=== PATIENT | female | born 1980 | race Caucasian/White ===

== ENCOUNTER 2018-09-27 20:15 | Emergency (ER) | payer BC, OTHER ==
[2018-09-27] MEDS ORDERED: RABIES VACCINE (PCEC)/PF 2.5 UNIT/VIAL IM ONE ×2 (20:24→21:49)
[2018-09-27 20:29] VITALS: BP 141/94; PULSE 84; TEMP 98.8; BMI 20.7
[2018-09-27] MEDS ORDERED: RABIES IMMUNE GLOBULIN 300 UNITS/1 ML VIAL IM ONE (21:03)
[2018-09-27] MEDS ORDERED: DIPHTH,PERTUSS(ACELL),TET 0.5 ML DISP.SYRIN IM ONE ×2 (21:03→21:49)
--- NOTE | 2018-09-27 21:48 | PDOC ---
History of Present Illness <Darien Santo - Last Filed: 09/27/18 21:46> - History of Present Illness Initial Comments: The patient is a 38 year old female, with no significant past medical history, who presents to the emergency department s/p dog bite 2 days ago. Patient states that she was on vacation in [place] when she was bit on the ankle by a small stray dog. She comes in today to receive a rabies shot. She denies recent fevers, chills, headache or dizziness. She denies recent nausea, vomit, diarrhea or constipation. She denies recent dysuria, frequency, urgency or hematuria. She denies recent chest pain or shortness of breath. Allergies: Augmentin (rash) Past surgical history: None reported. 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 Primary Care Physician: none <Aleyda Abrams - Last Filed: 09/27/18 21:59> - General Chief Complaint: Bite Stated Complaint: DOG BITE Time Seen by Provider: 09/27/18 20:19 Past History - Past Medical History COPD: No - Immunization History Immunization Up to Date: Yes - Suicide/Smoking/Psychosocial Hx Smoking History: Current some day smoker Have you smoked in the past 12 months: Yes Number of Cigarettes Smoked Daily: 1 Information on smoking cessation initiated: No 'Breaking Loose' booklet given: 07/10/14 Hx Alcohol Use: No Substance Use Type: None <Darien Santo - Last Filed: 09/27/18 21:46> <Aleyda Abrams - Last Filed: 09/27/18 21:59> - Past Medical History Allergies/Adverse Reactions: Allergies Allergy/AdvReac Type Severity Reaction Status Date / Time amoxicillin trihydrate Allergy Rash Verified 07/10/14 22:58 [From Augmentin] potassium clavulanate Allergy Rash Verified 07/10/14 22:58 [From Augmentin] Home Medications: Ambulatory Orders Klonopin PRN PRN 09/27/18 Review of Systems - Review of Systems Comments:: Constitutional: no recent illness; no fever ENT: no sore throat Cardiovascular: no palpitations; no chest pain Pulmonary: no cough; no trouble breathing Gastrointestinal: No nausea; no vomiting; no diarrhea Genitourinary: No urinary problems; no hematuria Skin: + right ankle dog bite. Lymph system: No swollen glands Musculoskeletal: No joint swelling Neurological: No weakness; No numbness; No Headache; no vertigo; no lightheadedness Psychiatric:No anxiety; no depression <Aleyda Abrams - Last Filed: 09/27/18 21:59> *Physical Exam - Vital Signs Last Vital Signs Temp Pulse Resp BP Pulse Ox 98.8 F 84 16 141/94 100 09/27/18 20:23 09/27/18 20:23 09/27/18 20:23 09/27/18 20:23 09/27/18 20:23 <Darien Santo - Last Filed: 09/27/18 21:46> - Vital Signs Last Vital Signs Temp Pulse Resp BP Pulse Ox 98.8 F 84 16 141/94 100 09/27/18 20:23 09/27/18 20:23 09/27/18 20:23 09/27/18 20:23 09/27/18 20:23 - Physical Exam Comments: Vitals: Triage Vital signs reviewed General Appearance: no acute distress, well nourished well developed Head: Atraumatic Extremities: Full range of motion to all extremities, no cyanosis, clubbing, or edema Skin: Small superficial dog bite to right ankle. Warm and dry, no rashes, no petechiae Neuro: AOX3; Strength intact to all extremities, Sensation intact to all extremities, gait normal <Aleyda Abrams - Last Filed: 09/27/18 21:59> Moderate Sedation - Procedure Monitoring Vital Signs: Procedure Monitoring Vital Signs Temperature 98.8 F 09/27/18 20:23 Pulse Rate 84 09/27/18 20:23 Respiratory Rate 16 09/27/18 20:23 Blood Pressure 141/94 09/27/18 20:23 O2 Sat by Pulse Oximetry (%) 100 09/27/18 20:23 <Darien Santo - Last Filed: 09/27/18 21:46> - Procedure Monitoring Vital Signs: Procedure Monitoring Vital Signs Temperature 98.8 F 09/27/18 20:23 Pulse Rate 84 09/27/18 20:23 Respiratory Rate 16 09/27/18 20:23 Blood Pressure 141/94 09/27/18 20:23 O2 Sat by Pulse Oximetry (%) 100 09/27/18 20:23 <Aleyda Abrams - Last Filed: 09/27/18 21:59> Medical Decision Making - Medical Decision Making 09/27/18 21:47 Patient presents to the emergency department status post dog bite 2 days ago while in [place]. Dog was a stray dog she was been in her ankle she was prescribed antibiotics which she is currently taking she presents to the emergency department to be evaluated for rabies. Patient well-appearing no apparent distress no systemic signs and symptoms of active infection Tetanus updated rabies vaccine and immunoglobulin given in ED patient will return for 3 additional shots Findings, the need for follow-up and strict return instructions discussed with patient. <Darien Santo - Last Filed: 09/27/18 21:46> *DC/Admit/Observation/Transfer - Discharge Dispostion Decision to Admit order: No <Darien Santo - Last Filed: 09/27/18 21:46> - Attestations Scribe Attestion: 09/27/18 21:59 Documentation prepared by Aleyda Abrams, acting as quality engineer medical device for Darien Santo MD. <Aleyda Abrams - Last Filed: 09/27/18 21:59> Diagnosis at time of Disposition: Dog bite Qualifiers: Encounter type: initial encounter Qualified Code(s): W54.0XXA - Bitten by dog, initial encounter - Discharge Dispostion Disposition: HOME Condition at time of disposition: Stable - Referrals - Patient Instructions Printed Discharge Instructions: DI for Animal Bites Additional Instructions: Continue your antibiotics as prescribed. Bacitracin to bite area twice a day. Return to the emergency department on September 30 and the to complete your rabies series. Return to ED for any concerns. - Post Discharge Activity Forms/Work/School Notes: Rabies Vaccination F/U [facility].
[2018-09-27] MEDS ORDERED: RABIES IMMUNE GLOBULIN 300 UNITS/1 ML VIAL ONE (21:49)
== END 2018-09-27 22:20 | disposition home or self-care (01) ==
LOC: FER 20:15
PROC: 3E0234Z Introduction of Serum, Toxoid and Vaccine into Muscle, Percutaneous Approach (ICD-10-PCS; principal; 2018-09-27)
PROC: 3E0234Z Introduction of Serum, Toxoid and Vaccine into Muscle, Percutaneous Approach (ICD-10-PCS; 2018-09-27)
DX: Z23 Encounter for immunization (principal); Z20.3 Contact with and (suspected) exposure to rabies
CPT/HCPCS: 90375; 90675; 90715; 99282-25

== ENCOUNTER 2018-09-30 21:17 | Emergency (ER) | payer BC, OTHER ==
--- NOTE | 2018-09-30 21:19 | PDOC ---
History of Present Illness - General Chief Complaint: Revisit,Rabies Injection Stated Complaint: RABIES INJECTION Time Seen by Provider: 09/30/18 21:19 History Source: Patient Exam Limitations: No Limitations - History of Present Illness Initial Comments: 09/30/18 21:31 38 year old female, with no significant past medical history, who presents to the emergency department s/p dog bite when she was on vacation in [place] when she was bit on the rt ankle by a small stray dog on 09/25/18. She comes in today to receive a rabies shot, #2/4. only took her abx x 3 days, stopped taking due to effects. area healing, no s/s infection. got call from [facility] today ROS Constitutional: no fevers or chills. MUSCULOSKELETAL: No joint pain and swelling. No neck or back pain. SKIN: no redness or skin changes, no discharge, no rash. No wounds. Hematologic: no easy bruising/bleeding. NEUROLOGIC: No weakness, numbness or tingling. Allergic/Immunologic: no allergies All other systems reviewed and negative, or as documented in HPI. PE: General: NAD, well appearing Vascular: 2+ radialis pulses symmetric and equal. Neuro: distal transcriber strength 5/5. sensation grossly intact MSK: soft compartments, Cap refill <2 sec. 2+ radialis pulses bilaterally and symmetric. no joint tenderness. FROM. Skin: color normal color, warm and well perfused. 09/30/18 21:31 09/30/18 21:33 09/30/18 21:34 Past History - Past Medical History Allergies/Adverse Reactions: Allergies Allergy/AdvReac Type Severity Reaction Status Date / Time amoxicillin trihydrate Allergy Rash Verified 07/10/14 22:58 [From Augmentin] potassium clavulanate Allergy Rash Verified 07/10/14 22:58 [From Augmentin] Home Medications: Ambulatory Orders NK [No Known Home Medication] 09/30/18 COPD: No - Immunization History Immunization Up to Date: Yes - Suicide/Smoking/Psychosocial Hx Smoking History: Current some day smoker Have you smoked in the past 12 months: Yes Number of Cigarettes Smoked Daily: 1 'Breaking Loose' booklet given: 07/10/14 Hx Alcohol Use: No Substance Use Type: None Medical Decision Making - Medical Decision Making 09/30/18 21:35 hpi as documented VS wnl given dose 2/4 of rabies vaccine due to exposure to stray dog [place]. scheduled reviewed, return on 10/04 and 10/11 for next dosing to complete series already given tetanus no s/s infection. has good followup return precautions given. 09/30/18 21:36 *DC/Admit/Observation/Transfer Diagnosis at time of Disposition: Need for rabies vaccination - Discharge Dispostion Disposition: HOME Condition at time of disposition: Good Decision to Admit order: No - Referrals - Patient Instructions Printed Discharge Instructions: DI for Rabies Vaccine Additional Instructions: you came in today for your rabies vaccine. #2 in series of 4 total you will be followed with the Department of Health. Return to the emergency department on October 04 and the to complete your rabies series. Return to ED for any concerns such as infection you completed your antibiotics. keep the site clean and dry. - Post Discharge Activity
[2018-09-30] MEDS ORDERED: RABIES VACCINE (PCEC)/PF 2.5 UNIT/VIAL IM ONE ×2 (21:21→21:25)
[2018-09-30 21:25] VITALS: BP 144/92; PULSE 80; TEMP 98.2; BMI 20.7
== END 2018-09-30 21:34 | disposition home or self-care (01) ==
LOC: FER 21:17
PROC: 3E0234Z Introduction of Serum, Toxoid and Vaccine into Muscle, Percutaneous Approach (ICD-10-PCS; principal; 2018-09-30)
DX: Z23 Encounter for immunization (principal); Z20.3 Contact with and (suspected) exposure to rabies
CPT/HCPCS: 90675; 99281-25

== ENCOUNTER 2018-10-04 14:57 | Emergency (ER) | payer BC, OTHER ==
[2018-10-04 15:01] VITALS: BP 110/69; PULSE 71; TEMP 98.3; BMI 20.7
[2018-10-04] MEDS ORDERED: RABIES VACCINE (PCEC)/PF 2.5 UNIT/VIAL IM ONE ×2 (15:10→15:12)
--- NOTE | 2018-10-04 15:23 | PDOC ---
History of Present Illness - General Chief Complaint: Revisit,Rabies Injection Stated Complaint: RABIES INJECTION Time Seen by Provider: 10/04/18 14:58 - History of Present Illness Initial Comments: 10/04/18 15:13 38 year old female, with no significant past medical history, who presents to the emergency department for her 3rd rabies vaccine. Pt is s/p dog bite when she was on vacation in [place], she was bit on the rt ankle by a small stray dog on 09/25/18. Notes bite area is healing, with no redness, increasing pain, warmth or discharge. Denies f/c, cp/sob, n/v, abd pain, dizziness, weakness, numbess. Past History - Past Medical History Allergies/Adverse Reactions: Allergies Allergy/AdvReac Type Severity Reaction Status Date / Time amoxicillin trihydrate Allergy Rash Verified 10/04/18 14:58 [From Augmentin] potassium clavulanate Allergy Rash Verified 10/04/18 14:58 [From Augmentin] Home Medications: Ambulatory Orders NK [No Known Home Medication] 09/30/18 COPD: No - Immunization History Immunization Up to Date: Yes - Suicide/Smoking/Psychosocial Hx Smoking History: Never smoked Have you smoked in the past 12 months: No Number of Cigarettes Smoked Daily: 1 Information on smoking cessation initiated: No 'Breaking Loose' booklet given: 07/10/14 Hx Alcohol Use: No Drug/Substance Use Hx: No Substance Use Type: None Review of Systems - Review of Systems Comments:: 10/04/18 15:16 GENERAL/CONSTITUTIONAL: No fever or chills. No weakness. HEAD, EYES, EARS, NOSE AND THROAT: No change in vision. No ear pain or discharge. No sore throat. GASTROINTESTINAL: No nausea, vomiting, diarrhea or constipation. GENITOURINARY: No dysuria, frequency, or change in urination. CARDIOVASCULAR: No chest pain or shortness of breath. RESPIRATORY: No cough, wheezing, or hemoptysis. MUSCULOSKELETAL: No joint or muscle swelling or pain. No neck or back pain. SKIN: No rash NEUROLOGIC: No headache, vertigo, loss of consciousness, or change in strength/ sensation. ENDOCRINE: No increased thirst. No abnormal weight change. HEMATOLOGIC/LYMPHATIC: No anemia, easy bleeding, or history of blood clots. ALLERGIC/IMMUNOLOGIC: No hives or skin allergy. *Physical Exam - Vital Signs Last Vital Signs Temp Pulse Resp BP Pulse Ox 98.3 F 71 20 110/69 100 10/04/18 14:58 10/04/18 14:58 10/04/18 14:58 10/04/18 14:58 10/04/18 14:58 - Physical Exam Comments: 10/04/18 15:16 GENERAL: Awake, alert, and fully oriented, in no acute distress CV: RRR, no MRG Pulm: CTAB, no WRR Abd: soft, NTND, no masses Ext: WWP, 2+ pulses Neuro: distal general manager road production strength 5/5. sensation grossly intact MSK: soft compartments, Cap refill <2 sec. FROM, no erythema Moderate Sedation - Procedure Monitoring Vital Signs: Procedure Monitoring Vital Signs Temperature 98.3 F 10/04/18 14:58 Pulse Rate 71 10/04/18 14:58 Respiratory Rate 20 10/04/18 14:58 Blood Pressure 110/69 10/04/18 14:58 O2 Sat by Pulse Oximetry (%) 100 10/04/18 14:58 Medical Decision Making - Medical Decision Making 10/04/18 15:34 38yo F presents to ED for vaccine / Pt well appearing, asymptomatic Normal exam, healed bite wound Pt to return for 4th vaccine 10/11 Stable for DC home I discussed the physical exam findings, ancillary test results and final diagnoses with the patient. I answered all of the patient's questions. The patient was satisfied with the care received and felt comfortable with the discharge plan and treatment plan. The patient will call their primary care physician within 24 hours to arrange follow-up and will return to the Emergency Department with any new, persistent or worsening symptoms. *DC/Admit/Observation/Transfer Diagnosis at time of Disposition: Need for rabies vaccination - Discharge Dispostion Disposition: HOME Condition at time of disposition: Stable Decision to Admit order: No - Referrals - Patient Instructions Printed Discharge Instructions: DI for Rabies Vaccine Additional Instructions: Return on October 11 for your last rabies shot. Follow up with your primary doctor within 2-3 days. Return to the emergency room if you have any new, worsening or concerning symptoms. - Post Discharge Activity - Attestations Physician Attestion: 10/04/18 15:37 I, Dr. Olive Mcallister MD, attest that this document has been prepared under my direction and personally reviewed by me in its entirety. I further attest, that it accurately reflects all work, treatment, procedures and medical decision -making performed by me.
== END 2018-10-04 16:01 | disposition home or self-care (01) ==
LOC: FER 14:57
PROC: 3E0234Z Introduction of Serum, Toxoid and Vaccine into Muscle, Percutaneous Approach (ICD-10-PCS; principal; 2018-10-04)
DX: Z23 Encounter for immunization (principal); Z20.3 Contact with and (suspected) exposure to rabies
CPT/HCPCS: 90675; 99281-25

== ENCOUNTER 2018-10-11 12:53 | Emergency (ER) | payer BC, OTHER ==
[2018-10-11] MEDS ORDERED: RABIES VACCINE (PCEC)/PF 2.5 UNIT/VIAL IM ONE ×2 (12:55→13:02)
--- NOTE | 2018-10-11 13:01 | PDOC ---
History of Present Illness - General Chief Complaint: Revisit,Rabies Injection Stated Complaint: RABIES VACCINE Time Seen by Provider: 10/11/18 12:55 History Source: Patient Exam Limitations: No Limitations - History of Present Illness Initial Comments: 10/11/18 12:58 38 year old female, with no significant past medical history, who presents to the emergency department for 4th rabies vaccine dose s/p dog bite when she was on vacation in [place] when she was bit on the rt ankle by a small stray dog on 09/25/18. She comes in today to receive a rabies shot, #4/4. area healing, no s/s infection. tdap up to date no additional animal contacts. ROS Constitutional: no fevers or chills. MUSCULOSKELETAL: No joint pain and swelling. No neck or back pain. SKIN: no redness or skin changes, no discharge, no rash. No wounds. Hematologic: no easy bruising/bleeding. NEUROLOGIC: No weakness, numbness or tingling. Allergic/Immunologic: no allergies All other systems reviewed and negative, or as documented in HPI. PE: General: NAD, well appearing Vascular: 2+ radialis pulses symmetric and equal. Neuro: distal catalyst operator chief strength 5/5. sensation grossly intact MSK: soft compartments, Cap refill <2 sec. 2+ radialis pulses bilaterally and symmetric. no joint tenderness. FROM. Skin: color normal color, warm and well perfused. 10/11/18 13:00 Past History - Past Medical History Allergies/Adverse Reactions: Allergies Allergy/AdvReac Type Severity Reaction Status Date / Time amoxicillin trihydrate Allergy Rash Verified 10/04/18 14:58 [From Augmentin] potassium clavulanate Allergy Rash Verified 10/04/18 14:58 [From Augmentin] Home Medications: Ambulatory Orders NK [No Known Home Medication] 09/30/18 COPD: No - Immunization History Immunization Up to Date: Yes - Suicide/Smoking/Psychosocial Hx Smoking History: Current some day smoker Have you smoked in the past 12 months: Yes Number of Cigarettes Smoked Daily: 1 'Breaking Loose' booklet given: 07/10/14 Hx Alcohol Use: No Drug/Substance Use Hx: No Substance Use Type: None Medical Decision Making - Medical Decision Making 10/11/18 13:17 hpi as documented VS wnl well appearing. no complications UTD on rabies vaccine today. [facility] paperwork completed and to be faxed. DC with followup, stable condition, questions and concerns answered. avoid further future contact with stray animals that could carry diseases such as rabies. pt does travel frequently, UTD on her vaccines. *DC/Admit/Observation/Transfer Diagnosis at time of Disposition: Need for rabies vaccination - Discharge Dispostion Disposition: HOME Condition at time of disposition: Good Decision to Admit order: No - Referrals - Patient Instructions Printed Discharge Instructions: DI for Rabies Vaccine Additional Instructions: you have completed your rabies vaccination series, x 4 doses follow up with your [facility] call. we will fax over the information on your vaccination schedule to the department of health follow up if any concerns or symptoms with us or your primary doctor. avoid contact in the future with animals that may carry rabies (dogs, cats, raccoons, skunks, stone etc...) - Post Discharge Activity
[2018-10-11 13:22] VITALS: BP 139/93; PULSE 92; TEMP 98.6; BMI 20.7
== END 2018-10-11 13:27 | disposition home or self-care (01) ==
LOC: FER 12:53
PROC: 3E0234Z Introduction of Serum, Toxoid and Vaccine into Muscle, Percutaneous Approach (ICD-10-PCS; principal; 2018-10-11)
DX: Z23 Encounter for immunization (principal); Z20.3 Contact with and (suspected) exposure to rabies
CPT/HCPCS: 90675; 99281-25